=== PATIENT | male | born 1945 | race Caucasian/White ===

== ENCOUNTER 2021-11-11 12:39 | Day surgery (SDC) | payer OTHER ==
[2021-11-10 15:08] LABS: BASOPHILS % (AUTO) 0.3 % (0-1); EOSINOPHILS # (AUTO) 0.2 X10'3 (0-0.9); LYMPHOCYTES # (AUTO) 1.8 X10'3 (1.1-4.8); MEAN CORPUSCULAR HGB CONC 34.1 g/dL (33.0-36.5); MEAN CORPUSCULAR VOLUME 90.7 FL (78-98); MEAN PLATELET VOLUME 7.2 FL (7.4-10.4); MONOCYTES # (AUTO) 0.6 X10'3 (0-0.9); MONOCYTES % (AUTO) 6.8 % (2-12); NEUTROPHILS # (AUTO) 6.8 X10'3 (1.8-7.7); NEUTROPHILS % (AUTO) 71.9 % (42-75); PRE OP HEMATOCRIT 43.3 % (42.0-52.0); PRE OP HEMOGLOBIN 14.8 g/dL (14.0-17.9); PRE OP PLATELET COUNT 233 X10'3 (140-440); RED BLOOD COUNT 4.78 X10'6 (4.70-6.10); RED CELL DISTRIBUTION WIDTH 13.4 % (11.5-14.5)
[2021-11-10 15:18] LABS: ALBUMIN 3.3 G/DL (3.4-5.0); ALBUMIN/GLOBULIN RATIO 0.8 (1.1-1.5); ALKALINE PHOSPHATASE 90 IU/L (46-116); BLOOD UREA NITROGEN 19 MG/DL (7-18); BUN/CREATININE RATIO 17.9 (5.4-32.0); CHLORIDE 104 MMOL/L (99-107); CREATININE 1.06 MG/DL (0.60-1.10); PRE OP ALT 32 U/L (30-65); PRE OP ANION GAP 10 (8-16); PRE OP AST 25 U/L (10-37); PRE OP BILIRUB, TOTAL 0.5 MG/DL (0.0-1.0); PRE OP GLUCOSE 113 MG/DL (70-104); PRE OP POTASSIUM 4.3 MMOL/L (3.4-5.1); PRE OP SODIUM 141 MMOL/L (135-145); TOTAL CARBON DIOXIDE 27.4 MMOL/L (24-32); TOTAL PROTEIN 7.3 G/DL (6.4-8.2); eGFR 68 ML/MIN
[~2021-11-11] VITALS: Ht 190.5 cm; Wt 126.1 kg
[2021-11-11] VITALS (10 sets, daily range): BP systolic 126–144; BP diastolic 69–85
[~2021-11-11 12:39] MED LIST: ASPI81TA52 PO; ATEN-169 PO; ATOR40TA PO; DOCUMENT DATE & TIME OF BETA-BLOCKER PO ONE; FISH12002 PO; LOSA25TA96 PO; MAGN400C PO; METF500T PO; RIVA20TA PO; ceFAZolin inj. 3,000 MG in normal saline 100ml IV soln 100 ML IV ONE; famotidine 20mg tablet PO ONE; ringers solution, lacted 1,000 ML IV SCH
[2021-11-11] MEDS ORDERED: CYAN100087 PO (13:30)
[2021-11-11] MEDS ORDERED: CYAN200017 (13:30)
[2021-11-11] MEDS ORDERED: LIDOcaine 1% 30ml preserv. free vial ONE (13:36)
[2021-11-11] MEDS ORDERED: BUPIVAcaine/PF 2.5 mg/ml (0.25%) 30ml vial ONE (13:36)
[2021-11-11] MEDS ORDERED: HYDROmorphone/PF 0.2 MG/ML SYRINGE IV PRN (14:20)
[2021-11-11] MEDS ORDERED: ringers solution, lacted 1,000 ML IV SCH (14:20)
[2021-11-11] MEDS ORDERED: ondansetron/PF 4mg/2ml inj IV PRN (14:20)
[2021-11-11] MEDS ORDERED: morphine 2 MG/ML inj. syringe IV PRN (14:20)
[2021-11-11] MEDS ORDERED: fentaNYL/PF 50MCG/1 ML 2ML syringe ONE (14:25)
[2021-11-11] MEDS ORDERED: ondansetron/PF 4mg/2ml inj ONE (14:35)
[2021-11-11] MEDS ORDERED: LIDOcaine 2% (20mg/ml) 5ml vial ONE (14:36)
[2021-11-11] MEDS ORDERED: propofol inj 20 ML IV ONE (14:36)
--- NOTE | 2021-11-11 15:17 | NUR ---
Received from OR via E[facility], accompanied by Anesthesiologist DR WELLINGTON and report given by Anesthesiologist. PT DROWSY, DENIES PAIN, RIGHT AXILLARY W/INCISION W/DERMABOND W/GOOD SEAL CDI. MARISOL TO DISTAL PORTION OF INCISION TO BULB SUCTION W/S/S DRAINAGE IN BULB. Addendum: 11/11/21 at 1711 by Briseida Linton RN Amended: Links added.
[2021-11-11] MEDS ORDERED: oxyCODONE/APAP 5-325mg tablet PO PRN (15:35)
--- NOTE | 2021-11-11 16:57 | NUR ---
PT UP AND ABLE TO AMBULATE W/MINIMAL ASSIST, TOLERATING ORAL FLUIDS. PTS AT BEDSIDE, MARISOL INSTRUCTIONS GIVEN AND GONE OVER W/PT AND PTS ALONG WITH D/C INSTRUCTIONS, BOTH VERBALIZED UNDERSTANDING. PT DENIES PAIN. PT D/CD TO HOME VIA W/C TO PRIVATE VEHICLE W/O INCIDENT. Addendum: 11/11/21 at 1727 by Briseida Linton RN Amended: Links added.
== END 2021-11-11 16:57 | disposition home or self-care (01) ==
LOC: PAS 12:39
PROVIDERS: ATTEND Surgery
DX: R22.2 Localized swelling, mass and lump, trunk (principal); L72.8 Other follicular cysts of the skin and subcutaneous tissue; C44.529 Squamous cell carcinoma of skin of other part of trunk; E11.9 Type 2 diabetes mellitus without complications; E78.5 Hyperlipidemia, unspecified; G47.33 Obstructive sleep apnea (adult) (pediatric); I10 Essential (primary) hypertension; E66.01 Morbid (severe) obesity due to excess calories; Z68.34 Body mass index [BMI] 34.0-34.9, adult; Z79.84 Long term (current) use of oral hypoglycemic drugs; Z79.899 Other long term (current) drug therapy; Z85.828 Personal history of other malignant neoplasm of skin; Z87.891 Personal history of nicotine dependence; Z83.3 Family history of diabetes mellitus; Z80.8 Family history of malignant neoplasm of other organs or systems
CPT/HCPCS: 11602; 21550; 36415; 80053; 82948; 85025; 87070; 87075; 87102; 87635; 93005; C9803; J0690; J2405; J2704; J3010; J3490; J7030; J7120; Z7506; Z7512; A4215; A4618; A7000